=== PATIENT | male | born 2005 | race Caucasian/White ===

== ENCOUNTER 2024-03-18 16:00 | Emergency (ER) | payer MEDICAID ==
[~2024-03-18] VITALS: Ht 190.5 cm; Wt 70.5 kg
[2024-03-18] MEDS ORDERED: LIDOcaine 1% W/epiNEPHrine 1:100,000 20ml vial SQ ONE (16:50)
[2024-03-18] MEDS ORDERED: CEPH-585 PO (18:38)
[2024-03-18 18:57] VITALS: BP 114/64; PULSE 70; RESP 16; TEMP 98.9; O2SAT 99
== END 2024-03-18 18:59 | disposition home or self-care (01) ==
LOC: ER 16:01
DX: S81.812A Laceration without foreign body, left lower leg, initial encounter (principal); W01.0XXA Fall on same level from slipping, tripping and stumbling without subsequent striking against object, initial encounter; Y93.89 Activity, other specified; Y92.89 Other specified places as the place of occurrence of the external cause; Y99.8 Other external cause status
CPT/HCPCS: 12001; 99284

== ENCOUNTER 2025-02-20 20:37 | Emergency (ER) | payer MEDICAID ==
[~2025-02-20] VITALS: Ht 188 cm; Wt 54.6 kg
[2025-02-20 20:51] VITALS: BP 110/72; PULSE 83; RESP 15; TEMP 96.8; O2SAT 99
--- NOTE | 2025-02-20 23:52 | Physician Documentation ---
History of Present Illness ~ Chief Complaint: Staple Removal Stated Complaint: STAPLE REMOVAL Time Seen by MD: 23:48 [facility] This 19-year-old male presents requesting staple removal from his posterior scalp, patient reports that he fell and sustained a laceration to his scalp pr oximally days ago. Patient reports he has had no difficulty with john with no pain, swelling, or fever. Tetanus Within 5 Years: Yes Medication Reconciliation Allergies: Coded Allergies: No Known Allergies (Unverified , 02/20/25) Past Medical History Past Medical History: No Pertinent History Review of Systems ROS Staple removal as stated above in the HPI, otherwise all systems are reviewed and negative. Physical Exam Vital Signs: Temperature: 96.8, Source: Temporal, Heart Rate: 83, Respiratory Rate: 15, BP: 110/72, Pulse Oximetry: 99, Weight: 54.600 Physical Exam VITALS: Reviewed and as above. GENERAL: Alert, nontoxic appearing, no apparent distress. RESPIRATORY: No increased work of breathing, no respiratory distress, speaking in full clear sentences SKIN: 1 cm laceration to posterior scalp with three john in place appears to be healing well, no erythema, no swelling, no tenderness to palpation Progress Results/Orders Results/Orders Completed Orders - CODI YEN BISQUE BRUSHER * Remove [place] * (02/20/25 23:52) Vital Signs 02/20/25 20:51 Temp 96.8 Pulse 83 Resp 15 B/P (MAP) 110/72 Pulse Ox 99 Medical Decision Making Findings 19-year-old male presented requesting staple removal after john placed proximally days ago for a laceration to his posterior scalp, area appears to be healing well without complications and is appropriate for staple removal. John removed by nursing staff. Patient provided home care instructions and return to care precautions. Differential Dx:Considerations: Include: Cellulitis, Wound dehiscence, Other (Abscess) Departure Disposition: 01 HOME / SELF CARE / HOMELESS Impression: Primary Impression: Laceration Additional Impression: Removal of staple Condition: Improved Discharge Instructions: Suture Removal, Care After Additional Instructions: Keep the area clean and dry, wash the area gently and avoid re-injuring the area. Please follow up with your primary care provider in the next few days. Please return to the emergency department for any new or worsening concerning symptoms. Referrals: NO PRIMARY CARE PROVIDER (PCP) Education Educated: Patient Educated regarding: diagnosis, treatment, prognosis, need for follow up Signature Scribe Signature: No scribe Attestation: The note accurately reflects work and decisions made by me.DEVAN Veronica 02/21/25 03:11 CODI YEN February 20, 2025 23:51
== END 2025-02-21 00:02 | disposition home or self-care (01) ==
LOC: ER 20:37
DX: S01.01XD Laceration without foreign body of scalp, subsequent encounter (principal); X58.XXXD Exposure to other specified factors, subsequent encounter
CPT/HCPCS: 99281